=== PATIENT | male | born 1935 | race Caucasian/White ===

== ENCOUNTER → 2017-03-07 | Outpatient (CLI) | payer OTHER ==
[~2017-03-07] MED LIST: BAYER CHEWABLE81 MG PO; FOLIC ACID1 MG PO; HYDROCHLOROTHIA25 M2 PO; LOSARTAN POTASS25 MG PO; METHOTREXATE 22.5 M1 PO; NORVASC5 MG PO; REMICADE 1100 MG/VIA; VITAMIN D31000 UNI2 PO
== END ==
LOC: CAT 16:48
DX: K57.90 Diverticulosis of intestine, part unspecified, without perforation or abscess without bleeding (principal); R10.9 Unspecified abdominal pain